=== PATIENT | male | born 1985 | race African-American/Black ===

== ENCOUNTER 2023-03-18 08:33 | Inpatient (IN) | payer MEDICAID ==
[~2023-03-18] VITALS: Ht 175.3 cm; Wt 100.0 kg
[~2023-03-18 08:33] MED LIST: FLUO20CA36 PO; RISP2TAB86 PO
[2023-03-18] MEDS ORDERED: DEXAMETHASONE SOD PHOS 4 MG/ML 5 ML VIAL IM ONE (09:00)
[2023-03-18] MEDS ORDERED: IOHEXOL 300 MG/ML 100 ML VIAL ONE (09:08)
[2023-03-18] MEDS ORDERED: SODIUM CHLORIDE 0.9% 100 ML ONE (09:08)
[2023-03-18 09:13] LABS: BASOPHILS % (AUTO) 0.3 % (0.0-2.0); EOSINOPHILS % (AUTO) 0.5 % (1.0-6.0); HEMATOCRIT 38.4 % (41-53); LYMPHOCYTES % (AUTO) 5.4 % (22.0-44.0); MEAN CORPUSCULAR HEMOGLOBIN 29.7 pg (26.0-34.0); MEAN CORPUSCULAR HGB CONC 33.8 G/dL (31.0-37.0); MEAN CORPUSCULAR VOLUME 88 fL (80-100); MONOCYTES # (AUTO) 1.1 K/uL (0.1-1.0); MONOCYTES % (AUTO) 5.8 % (2.0-9.0); PLATELET COUNT (AUTO) 461 K/uL (150-450); RED BLOOD CELL COUNT(AUTO) 4.36 MIL/uL (4.50-5.90); RED CELL DISTRIBUTION WIDTH 15.1 % (11.5-14.5)
[2023-03-18 09:28] LABS: ANION GAP 8 mmol/L (8-16); CALCIUM, TOTAL 8.6 mg/dL (8.8-10.5); CARBON DIOXIDE 26 mmol/L (22-29); CHLORIDE 98 mmol/L (98-107); CREATININE 0.78 mg/dL (0.60-1.30); GLOMERULAR FILTR. RATE CALC > 60 mL/min (>60); GLUCOSE,RANDOM 106 mg/dL (70-110); POTASSIUM 3.9 mmol/L (3.5-5.1); SODIUM SERUM 132 mmol/L (136-145); UREA NITROGEN, BLOOD 8 mg/dL (7-18)
[2023-03-18 09:31] LABS: ALANINE AMINOTRANSFERASE 28 U/L (12-78); ALBUMIN 3.4 g/dL (3.4-5.0); ALKALINE PHOSPHATASE 78 U/L (46-116); ASPARTATE AMINOTRANSFERASE 23 U/L (15-37); BILIRUBIN,TOTAL 0.4 mg/dL (0.1-1.0); TOTAL PROTEIN, SERUM 7.8 g/dL (6.4-8.2)
[2023-03-18 09:38] LABS: COVID AG,FIA SOURCE NASAL SWAB
[2023-03-18 09:58] LABS: RAPID GROUP A STREP POSITIVE (NEGATIVE)
[2023-03-18 10:00] LABS: INFLUENZA TYPE A NEGATIVE FOR TYPE A (NEGATIVE); INFLUENZA TYPE B NEGATIVE FOR TYPE B (NEGATIVE)
[2023-03-18] MEDS ORDERED: CefTRIAXone SODIUM 2 GM in DEXTROSE 5%-WATER 50 ML IV ONE (10:45)
[2023-03-18] MEDS ORDERED: ONDANSETRON HCL 4 MG/2 ML VIAL IVP PRN (12:15)
[2023-03-18] MEDS ORDERED: MAGNESIUM HYDROXIDE SUSPENSION 30 ML UDCUP PO PRN (12:15)
[2023-03-18] MEDS ORDERED: ACETAMINOPHEN 325 MG TABLET PO PRN (12:15)
[2023-03-18] MEDS ORDERED: SODIUM CHLORIDE 0.9% 1,000 ML IV ONE (12:15)
[2023-03-18] MEDS ORDERED: MetroNIDAZOLE 500 MG/NACL 100 ML IV SCH (12:15)
[2023-03-18 12:27] LABS: APPEARANCE,URINE CLEAR (CLEAR); BILIRUBIN,URINE NEGATIVE (NEGATIVE); GLUCOSE, URINE (UA) NEGATIVE (NEGATIVE); KETONES,URINE NEGATIVE (NEGATIVE); LEUKOCYTE ESTERASE ,URINE NEGATIVE (NEGATIVE); NITRATE,URINE NEGATIVE (NEGATIVE); OCCULT BLOOD,URINE NEGATIVE (NEGATIVE); PH,URINE 6.5 (5.0-8.0); PROTEIN,URINE NEGATIVE (NEGATIVE); SPECIFIC GRAVITIY, URINE 1.005 (1.003-1.030); UROBILINOGEN,URINE <=1.0 mg/dL (<=1.0)
[2023-03-18 14:44] VITALS: BP 125/61
[2023-03-18 20:10] VITALS: BP 122/53
[2023-03-18] MEDS ORDERED: SODIUM CHLORIDE 0.9% 500 ML IV ONE (20:15)
[2023-03-18] MEDS: MetroNIDAZOLE 500 MG/NACL 100 ML IV SCH (20:22)
[2023-03-19] MEDS: MetroNIDAZOLE 500 MG/NACL 100 ML IV SCH ×3 (03:50→20:29)
[2023-03-19 04:12] VITALS: BP 122/91
[2023-03-19] MEDS: PANTOPRAZOLE SODIUM 40 MG/VIAL IVP SCH (08:03)
[2023-03-19 08:32] VITALS: BP 124/89
[2023-03-19] MEDS ORDERED: CefTRIAXone 1 GM/DEXTROSE 50 ML IV SCH (11:00)
[2023-03-19] MEDS: CefTRIAXone SODIUM 2 GM in DEXTROSE 5%-WATER 50 ML IV SCH (11:18)
[2023-03-19] MEDS: FLUoxetine HCL 20 MG CAPSULE PO SCH (14:19)
[2023-03-19] MEDS: RisperiDONE 2 MG TABLET PO SCH ×2 (14:19→20:30)
[2023-03-19 15:29] VITALS: BP 121/65
[2023-03-19 19:33] VITALS: BP 131/60
[2023-03-19] MEDS: SODIUM CHLORIDE 0.65% 44 ML NASAL SPRAY NASAL PRN (20:30)
[2023-03-20 04:02] VITALS: BP 122/82
[2023-03-20] MEDS: MetroNIDAZOLE 500 MG/NACL 100 ML IV SCH ×2 (04:21→12:10)
[2023-03-20] MEDS: SODIUM CHLORIDE 0.65% 44 ML NASAL SPRAY NASAL PRN ×2 (04:24→11:59)
[2023-03-20 07:33] LABS: BASOPHILS % (AUTO) 1.2 % (0.0-2.0); EOSINOPHILS % (AUTO) 2.2 % (1.0-6.0); HEMOGLOBIN 12.5 g/dL (13.5-17.5); LYMPHOCYTES # (AUTO) 2.4 K/uL (1.0-4.8); LYMPHOCYTES % (AUTO) 28.7 % (22.0-44.0); MEAN CORPUSCULAR HEMOGLOBIN 29.3 pg (26.0-34.0); MEAN CORPUSCULAR VOLUME 89 fL (80-100); MONOCYTES # (AUTO) 0.8 K/uL (0.1-1.0); NEUTROPHILS # (AUTO) 4.9 K/uL (1.8-7.7); NEUTROPHILS % (AUTO) 57.9 % (40.0-70.0); PLATELET COUNT (AUTO) 523 K/uL (150-450); RED BLOOD CELL COUNT(AUTO) 4.28 MIL/uL (4.50-5.90)
[2023-03-20 07:46] LABS: ANION GAP 9 mmol/L (8-16); CALCIUM, TOTAL 8.7 mg/dL (8.8-10.5); CARBON DIOXIDE 25 mmol/L (22-29); CHLORIDE 102 mmol/L (98-107); CREATININE 0.76 mg/dL (0.60-1.30); GLOMERULAR FILTR. RATE CALC > 60 mL/min (>60); GLUCOSE,RANDOM 90 mg/dL (70-110); POTASSIUM 3.9 mmol/L (3.5-5.1); SODIUM SERUM 136 mmol/L (136-145); UREA NITROGEN, BLOOD 9 mg/dL (7-18)
[2023-03-20] MEDS: FLUoxetine HCL 20 MG CAPSULE PO SCH (07:54)
[2023-03-20] MEDS: PANTOPRAZOLE SODIUM 40 MG/VIAL IVP SCH (07:54)
[2023-03-20] MEDS: RisperiDONE 2 MG TABLET PO SCH (07:54)
[2023-03-20 08:07] VITALS: BP 108/75
[2023-03-20] MEDS ORDERED: AMOX500C2 PO (08:48)
[2023-03-20 10:26] LABS: COVID AG,FIA SOURCE NASAL SWAB
[2023-03-20] MEDS: CefTRIAXone SODIUM 2 GM in DEXTROSE 5%-WATER 50 ML IV SCH (11:30)
[2023-03-20 15:00] VITALS: BP 91/63
== END 2023-03-20 17:10 | disposition home health service (06) | DRG 720 ==
LOC: EMS 08:33 → 6S 13:52
PROVIDERS: ADMIT Internal Medicine; ATTEND Internal Medicine
DX: A41.9 Sepsis, unspecified organism (principal); G92.8 Other toxic encephalopathy; F25.0 Schizoaffective disorder, bipolar type; J03.00 Acute streptococcal tonsillitis, unspecified; F15.10 Other stimulant abuse, uncomplicated; E66.9 Obesity, unspecified; G47.30 Sleep apnea, unspecified; F17.210 Nicotine dependence, cigarettes, uncomplicated; T43.625A Adverse effect of amphetamines, initial encounter; Z20.822 Contact with and (suspected) exposure to COVID-19; Y92.89 Other specified places as the place of occurrence of the external cause; Z68.32 Body mass index [BMI] 32.0-32.9, adult; Z79.899 Other long term (current) drug therapy
CPT/HCPCS: 70491; 80048; 80053; 81003; 85025; 87430; 87804; 99285; C9113; J0696; J1100; J3490; J7030; J7040; J7050; J7060; Q9967

== ENCOUNTER 2024-03-25 08:36 | Inpatient (IN) | payer MEDICAID ==
[~2024-03-25] VITALS: Ht 167.6 cm; Wt 129.7 kg
[~2024-03-25 08:36] MED LIST changes: +AMOX500C2 PO; +RISP-32 PO; -RISP2TAB86 PO
[2024-03-25 09:50] LABS: GLUCOMETER DEV NAME(LOC) POC.BV; POC SARS-COV2 AG, FIA NEGATIVE (NEGATIVE)
[2024-03-25] MEDS ORDERED: PROMETHAZINE HCL 25 MG TABLET PO PRN (10:00)
[2024-03-25] MEDS ORDERED: GuaiFENesin/D-METHORPHAN [SUGAR-FREE] 200-20MG/10 ML SYRUP UDCUP PO PRN (10:00)
[2024-03-25] MEDS ORDERED: TUBERCULIN, PURIFIED PROTEIN DERIVATIVE 5 TU/0.1 ML SYRINGE ID ONE (10:00)
[2024-03-25] MEDS ORDERED: OLANZapine 5 MG RAPDIS TABLET PO PRN (10:00)
[2024-03-25] MEDS ORDERED: LOPERAMIDE HCL 2 MG CAPSULE PO PRN (10:00)
[2024-03-25] MEDS ORDERED: MAG HYDROX/ALUMINUM HYD/SIMETH ES 30 ML SUSPENSION UDCUP PO PRN (10:00)
[2024-03-25] MEDS ORDERED: MAGNESIUM HYDROXIDE SUSPENSION 30 ML UDCUP PO PRN (10:00)
[2024-03-25] MEDS ORDERED: HydrOXYzine PAMOATE 50 MG CAPSULE PO PRN (10:00)
[2024-03-25] MEDS ORDERED: ACETAMINOPHEN 325 MG TABLET PO PRN (10:00)
[2024-03-25 10:01] VITALS: BP 142/67; PULSE 91; RESP 20; TEMP 98.7
[2024-03-25 11:02] VITALS: BP 129/74; PULSE 89; RESP 18; TEMP 97.7; O2SAT 96
[2024-03-25] MEDS: LORazepam 2 MG TABLET PO PRN (17:03)
[2024-03-25] MEDS: THIAMINE 100 MG TABLET PO SCH (17:03)
[2024-03-25 20:21] VITALS: BP 117/71; PULSE 87; TEMP 97.7; O2SAT 97
[2024-03-25] MEDS: OLANZapine 5 MG RAPDIS TABLET PO SCH (20:43)
[2024-03-25] MEDS: ZOLPIDEM TARTRATE 10 MG TABLET PO PRN (20:43)
[2024-03-25] MEDS: MELATONIN 5 MG TABLET PO SCH (20:43)
[2024-03-26] MEDS: FLUoxetine HCL 20 MG CAPSULE PO SCH (08:07)
[2024-03-26] MEDS: OMEGA-3/DHA/EPA/FISH OIL 1,000 MG CAPSULE PO SCH (08:07)
[2024-03-26 08:08] VITALS: BP 138/82; PULSE 55; RESP 18; TEMP 97.9; O2SAT 96
[2024-03-26] MEDS: MULTIVITAMINS WITH MINERALS, THERAPEUTIC TABLET PO SCH (08:08)
[2024-03-26] MEDS: NALTREXONE HCL 50 MG TABLET PO SCH (08:08)
[2024-03-26] MEDS: FOLIC ACID 1 MG TABLET PO SCH (08:08)
[2024-03-26 08:31] LABS: BASOPHILS % (AUTO) 0.9 % (0.0-2.0); EOSINOPHILS % (AUTO) 4.2 % (1.0-6.0); HEMATOCRIT 38.2 % (41-53); HEMOGLOBIN 12.6 g/dL (13.5-17.5); LYMPHOCYTES # (AUTO) 1.9 K/uL (1.0-4.8); LYMPHOCYTES % (AUTO) 19.1 % (22.0-44.0); MEAN CORPUSCULAR HEMOGLOBIN 29.4 pg (26.0-34.0); MEAN CORPUSCULAR HGB CONC 32.9 G/dL (31.0-37.0); MEAN CORPUSCULAR VOLUME 89 fL (80-100); MONOCYTES # (AUTO) 0.9 K/uL (0.1-1.0); MONOCYTES % (AUTO) 9.1 % (2.0-9.0); NEUTROPHILS # (AUTO) 6.6 K/uL (1.8-7.7); NEUTROPHILS % (AUTO) 66.7 % (40.0-70.0); PLATELET COUNT (AUTO) 481 K/uL (150-450); RED BLOOD CELL COUNT(AUTO) 4.28 MIL/uL (4.50-5.90); RED CELL DISTRIBUTION WIDTH 15.3 % (11.5-14.5); WHITE BLOOD COUNT (AUTO) 9.9 K/uL (4.5-11.0)
[2024-03-26 08:33] LABS: APPEARANCE,URINE HAZY (CLEAR); BILIRUBIN,URINE NEGATIVE (NEGATIVE); COLOR,URINE YELLOW (YELLOW); GLUCOSE, URINE (UA) NEGATIVE (NEGATIVE); KETONES,URINE NEGATIVE (NEGATIVE); LEUKOCYTE ESTERASE ,URINE SMALL (NEGATIVE); NITRATE,URINE NEGATIVE (NEGATIVE); OCCULT BLOOD,URINE NEGATIVE (NEGATIVE); PH,URINE 5.5 (5.0-8.0); PROTEIN,URINE TRACE mg/dL (NEGATIVE); UROBILINOGEN,URINE <=1.0 mg/dL (<=1.0)
[2024-03-26 08:35] LABS: PH,URINE DRUG SCREEN 5.5 (5.0-8.0)
[2024-03-26 08:40] LABS: ALCOHOL, URINE DRUG SCREEN NEGATIVE (NEGATIVE); AMPHET/METH SCREEN,URINE POSITIVE (NEGATIVE); BARBITURATE SCREEN, URINE NEGATIVE (NEGATIVE); BENZODIAZEPINES SCREEN,URINE NEGATIVE (NEGATIVE); CANNABINOID SCREEN,URINE POSITIVE (NEGATIVE); COCAINE SCREEN,URINE NEGATIVE (NEGATIVE); METHADONE SCREEN, URINE NEGATIVE (NEGATIVE); OPIATE SCREEN,URINE NEGATIVE (NEGATIVE); PHENCYCLIDINE SCREEN,URINE NEGATIVE (NEGATIVE)
[2024-03-26 08:53] LABS: ALANINE AMINOTRANSFERASE 21 U/L (12-78); ALBUMIN 2.8 g/dL (3.4-5.0); ALKALINE PHOSPHATASE 98 U/L (46-116); ANION GAP 7 mmol/L (8-16); ASPARTATE AMINOTRANSFERASE 15 U/L (15-37); BILIRUBIN,TOTAL 0.1 mg/dL (0.1-1.0); CARBON DIOXIDE 28 mmol/L (22-29); CHLORIDE 105 mmol/L (98-107); CHOL/HDL RATIO 4.6 (4.2-7.3); CHOLESTEROL 213 mg/dL (131-200); CREATININE 0.86 mg/dL (0.60-1.30); FREE T4 (FREE THYROXINE) 1.02 ng/dL (0.76-1.46); GLOMERULAR FILTR. RATE CALC > 60 mL/min (>60); GLUCOSE,RANDOM 128 mg/dL (70-110); HDL CHOLESTEROL 46 mg/dL (40-60); LDL CHOL (CALC.) 145 mg/dL (0-130); POTASSIUM 3.5 mmol/L (3.5-5.1); SODIUM SERUM 140 mmol/L (136-145); THYROID STIMULATING HORMONE 2.93 uIU/mL (0.36-3.74); TRIGLYCERIDES 110 mg/dL (15-150); UREA NITROGEN, BLOOD 10 mg/dL (7-18)
[2024-03-26 09:02] LABS: BACTERIA,URINE None Seen /HPF (None Seen); RBC,URINE 0-2 /HPF (0-2)
[2024-03-26 09:03] LABS: CALCIUM OXALATE CRYSTALS,UR Many /LPF (None Seen)
[2024-03-26] MEDS ORDERED: PALIPERIDONE PALMITATE 234 MG/1.5 ML SYRINGE IM ONE (15:45)
[2024-03-26] MEDS ORDERED: HYDR-4808 PO (17:44)
[2024-03-26] MEDS ORDERED: FLUO20CA36 PO (17:44)
[2024-03-26] MEDS ORDERED: PALI1560 IM (17:44)
[2024-03-26] MEDS ORDERED: NALO4SPR NASAL (17:44)
[2024-03-26] MEDS ORDERED: BUSP15 PO (17:44)
[2024-03-26] MEDS ORDERED: BUPR-49 PO (17:44)
[2024-03-26] MEDS ORDERED: LITH600C5 PO (17:44)
[2024-03-26] MEDS ORDERED: NALT380S2 IM (17:44)
[2024-03-26] MEDS: OLANZapine 10 MG RAPDIS TABLET PO SCH (20:02)
[2024-03-26 20:36] VITALS: BP 145/96; PULSE 85; TEMP 98.1; O2SAT 94
[2024-03-27 06:07] LABS: HEPATITIS C AB (EIA) Non Reactive (Non Reactive)
[2024-03-27 08:23] VITALS: BP 124/78; PULSE 74; RESP 18; TEMP 98.4; O2SAT 94
[2024-03-27] MEDS: PALIPERIDONE PALMITATE 234 MG/1.5 ML SYRINGE IM ONE (08:28)
[2024-03-27 20:04] VITALS: BP 120/73; PULSE 95; TEMP 98; O2SAT 96
[2024-03-28 08:07] VITALS: BP 141/68; PULSE 108; RESP 17; TEMP 98.7; O2SAT 96
[2024-03-28] MEDS: FLUoxetine HCL 20 MG CAPSULE PO SCH (09:40)
[2024-03-28] MEDS: OLANZapine 5 MG RAPDIS TABLET PO SCH (20:33)
[2024-03-28 20:47] VITALS: BP 126/96; PULSE 107; TEMP 98.2; O2SAT 97
[2024-03-28] MEDS: DIVALPROEX SODIUM 500 MG ER TABLET PO SCH (21:45)
[2024-03-29] MEDS: FLUoxetine HCL 20 MG CAPSULE PO SCH (08:08)
[2024-03-29 08:25] VITALS: BP 129/62; PULSE 96; RESP 17; TEMP 98.1; O2SAT 95
[2024-03-29] MEDS: OLANZapine 10 MG RAPDIS TABLET PO SCH (21:57)
[2024-03-30 02:02] VITALS: BP 118/68; PULSE 98; RESP 18; TEMP 97.8; O2SAT 98
[2024-03-30 09:31] VITALS: BP 144/70; PULSE 105; RESP 19; TEMP 97.8; O2SAT 98
[2024-03-30 21:55] VITALS: BP 105/72; PULSE 98; RESP 16; TEMP 98.1; O2SAT 96
[2024-03-31] MEDS: PALIPERIDONE PALMITATE 156 MG/ML SYRINGE IM ONE (11:26)
[2024-03-31 13:25] VITALS: BP 122/73; PULSE 92; RESP 18; TEMP 98; O2SAT 98
[2024-03-31 20:00] VITALS: BP 140/83; PULSE 84; RESP 18; TEMP 97.9; O2SAT 98
[2024-04-01 08:50] VITALS: BP 126/57; PULSE 90; RESP 18; TEMP 97.9; O2SAT 95
[2024-04-01] MEDS: OLANZapine 5 MG RAPDIS TABLET PO SCH (21:34)
[2024-04-01 23:51] VITALS: RESP 18; TEMP 97.5
[2024-04-02 08:34] VITALS: BP 141/81; PULSE 87; RESP 19; TEMP 97.8; O2SAT 95
[2024-04-02] MEDS: FLUoxetine HCL 20 MG CAPSULE PO SCH (09:42)
[2024-04-02] MEDS ORDERED: OMEG-135 PO (16:56)
[2024-04-02] MEDS ORDERED: MELA5TAB40 PO (16:56)
[2024-04-02] MEDS ORDERED: DIVA500T69 PO (16:56)
[2024-04-02] MEDS ORDERED: OLAN5TAB94 PO (16:56)
[2024-04-02] MEDS ORDERED: FLUO20CA36 PO (16:56)
[2024-04-02] MEDS ORDERED: NALT50TA33 PO (16:56)
[2024-04-02 22:51] VITALS: BP 117/70; PULSE 74; RESP 16; TEMP 98.1; O2SAT 98
[2024-04-02 22:55] VITALS: BP 142/90; PULSE 74; RESP 16; TEMP 98.1; O2SAT 95
[2024-04-03 08:45] VITALS: BP 155/78; PULSE 96; RESP 19; TEMP 98.6; O2SAT 96
[2024-04-03] MEDS ORDERED: DIVA500T53 PO (11:16)
[2024-04-03] MEDS ORDERED: NALT50TA33 PO (11:17)
[2024-04-03] MEDS ORDERED: MELA5TAB40 PO (11:17)
[2024-04-03] MEDS ORDERED: OLAN5TAB94 PO (11:20)
[2024-04-03] MEDS ORDERED: OMEG-135 PO (11:23)
== END 2024-04-03 12:25 | disposition home or self-care (01) | DRG 750 ==
LOC: B3A 10:00 → B2S 03-31 13:36
PROVIDERS: ADMIT Psychiatry & Neurology Psychiatry; ATTEND Psychiatry & Neurology Psychiatry
PROC: GZHZZZZ Group Psychotherapy (ICD-10-PCS; principal; 2024-03-25)
PROC: GZ58ZZZ Individual Psychotherapy, Cognitive-Behavioral (ICD-10-PCS; 2024-03-25)
PROC: GZ56ZZZ Individual Psychotherapy, Supportive (ICD-10-PCS; 2024-03-25)
DX: F25.1 Schizoaffective disorder, depressive type (principal); R45.851 Suicidal ideations; E87.1 Hypo-osmolality and hyponatremia; F31.9 Bipolar disorder, unspecified; Z68.42 Body mass index [BMI] 45.0-49.9, adult; J44.9 Chronic obstructive pulmonary disease, unspecified; Z20.822 Contact with and (suspected) exposure to COVID-19; D64.9 Anemia, unspecified; F17.210 Nicotine dependence, cigarettes, uncomplicated; E78.5 Hyperlipidemia, unspecified; E66.9 Obesity, unspecified; Z55.9 Problems related to education and literacy, unspecified; Z59.00 Homelessness unspecified; Z63.9 Problem related to primary support group, unspecified; Z65.3 Problems related to other legal circumstances; Z79.899 Other long term (current) drug therapy
CPT/HCPCS: 80053; 80061; 80164; 80307; 81001; 83036; 84439; 84443; 85025; 86592; 86803; 87340; Q9967

== ENCOUNTER 2024-07-23 13:04 | Emergency (ER) | payer MEDICAID, OTHER ==
[~2024-07-23] VITALS: Ht 170.2 cm; Wt 86.4 kg
[~2024-07-23 13:04] MED LIST changes: -AMOX500C2 PO; +DIVA-153 PO; +DIVA500T69 PO; +FLUO-418 PO; -FLUO20CA36 PO; +MELA5TAB40 PO; +NALT50TA33 PO; +OLAN5TAB94 PO; +OMEG-135 PO; -RISP-32 PO
[2024-07-23 13:14] VITALS: TEMP 98.4
[2024-07-23] MEDS: ACETAMINOPHEN 500 MG TABLET PO ONE (14:51)
[2024-07-23] MEDS: IBUPROFEN 600 MG TABLET PO ONE (14:51)
[2024-07-23 15:00] VITALS: BP 138/79; PULSE 98; RESP 20; O2SAT 96
== END 2024-07-23 15:14 | disposition home or self-care (01) ==
LOC: EMS 13:07
DX: S00.83XA Contusion of other part of head, initial encounter (principal); F25.0 Schizoaffective disorder, bipolar type; F17.210 Nicotine dependence, cigarettes, uncomplicated; Y04.8XXA Assault by other bodily force, initial encounter; Y93.89 Activity, other specified; Y92.89 Other specified places as the place of occurrence of the external cause; Y99.8 Other external cause status
CPT/HCPCS: 99283